=== PATIENT | male | born 1995 | race African-American/Black ===

== ENCOUNTER 2020-11-29 14:31 | Outpatient (AMBR) | payer MEDICAID, SELFPAY ==
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
--- NOTE | 2020-11-11 16:08 | PT.ODAYNRPT ---
PT Outpatient Daily Note Date of Service: 11/11/20 OP Daily Note Visit Reasons: Left clavicle fracture Outpatient Physical Therapy Treatment Date: 11/11/20 Subjective: Pt mention that his shoulder feels okay but still tight Objective: Please see flow chart for list of ther ex performed Assessment: tolerate exercises with minimal pain Plan: Continue with PT Length of Time (minutes) of Treatment: 30 Minutes Office Procedures PT Procedures PT Date of Service: 11/08/20 OP PT Eval Mod Complex 30 minutes: Yes PT Procedures PT Date of Service: 11/11/20 MCL Initial 30 minutes: Yes
--- NOTE | 2020-11-13 16:11 | PT.ODAYNRPT ---
PT Outpatient Daily Note Date of Service: 11/13/20 OP Daily Note Visit Reasons: Left clavicle fracture Outpatient Physical Therapy Treatment Date: 11/13/20 Subjective: Pt's shoulder feels pretty good after last session Objective: Please see flow chart for list of ther ex performed Assessment: tolerate exercises with minimal pain Plan: Continue with PT Length of Time (minutes) of Treatment: 30 Minutes Office Procedures PT Procedures PT Date of Service: 11/08/20 OP PT Eval Mod Complex 30 minutes: Yes PT Procedures PT Date of Service: 11/11/20 MCL Initial 30 minutes: Yes PT Procedures PT Date of Service: 11/13/20 MCL Initial 30 minutes: Yes
--- NOTE | 2020-11-18 16:08 | PT.ODAYNRPT ---
PT Outpatient Daily Note Date of Service: 11/18/20 OP Daily Note Visit Reasons: Left clavicle fracture Outpatient Physical Therapy Treatment Date: 11/18/20 Subjective: Pt feels shoulder is tight. Pt notice knot in the latts. Pt overall shoulder ROM is improving Objective: Please see flow chart for list of ther ex performed Assessment: decrease tension in latts after STM. Noted more shoulder ER after latt was worked on. Pt still require cues to relax to decrease compensation with shoulder exercises Plan: Continue with PT Length of Time (minutes) of Treatment: 45 Minutes Office Procedures PT Procedures PT Date of Service: 11/08/20 OP PT Eval Mod Complex 30 minutes: Yes PT Procedures PT Date of Service: 11/11/20 MCL Initial 30 minutes: Yes PT Procedures PT Date of Service: 11/13/20 MCL Initial 30 minutes: Yes PT Procedures PT Date of Service: 11/18/20 MCL Initial 30 minutes: Yes MCL Additional 15 minutes (Total 45 Minutes): Yes
--- NOTE | 2020-11-20 16:18 | PT.ODAYNRPT ---
PT Outpatient Daily Note Date of Service: 11/20/20 OP Daily Note Visit Reasons: Left clavicle fracture Outpatient Physical Therapy Treatment Date: 11/20/20 Subjective: Pt mention that his latts feel much better after last session. Pt still notice tightness but it has improved. Objective: Please see flow chart for list of ther ex performed Assessment: more shoulder external rotation AROM noted today; latts still exhibit tension and decrease after STM Plan: Continue with PT Length of Time (minutes) of Treatment: 45 Minutes Office Procedures PT Procedures PT Date of Service: 11/08/20 OP PT Eval Mod Complex 30 minutes: Yes PT Procedures PT Date of Service: 11/11/20 MCL Initial 30 minutes: Yes PT Procedures PT Date of Service: 11/13/20 MCL Initial 30 minutes: Yes PT Procedures PT Date of Service: 11/18/20 MCL Initial 30 minutes: Yes MCL Additional 15 minutes (Total 45 Minutes): Yes PT Procedures PT Date of Service: 11/20/20 MCL Initial 30 minutes: Yes MCL Additional 15 minutes (Total 45 Minutes): Yes
--- NOTE | 2020-11-27 16:14 | PT.ODAYNRPT ---
PT Outpatient Daily Note Date of Service: 11/27/20 OP Daily Note Visit Reasons: Left clavicle fracture Outpatient Physical Therapy Treatment Date: 11/27/20 Subjective: Pt mention that his shoulder is better. Pt has been doing latts STM Objective: Please see flow chart for list of ther ex performed Assessment: tolerate exercises with minimal pain Plan: Continue with PT Length of Time (minutes) of Treatment: 45 Minutes Office Procedures PT Procedures PT Date of Service: 11/08/20 OP PT Eval Mod Complex 30 minutes: Yes PT Procedures PT Date of Service: 11/11/20 MCL Initial 30 minutes: Yes PT Procedures PT Date of Service: 11/13/20 MCL Initial 30 minutes: Yes PT Procedures PT Date of Service: 11/18/20 MCL Initial 30 minutes: Yes MCL Additional 15 minutes (Total 45 Minutes): Yes PT Procedures PT Date of Service: 11/20/20 MCL Initial 30 minutes: Yes MCL Additional 15 minutes (Total 45 Minutes): Yes PT Procedures PT Date of Service: 11/27/20 MCL Initial 30 minutes: Yes MCL Additional 15 minutes (Total 45 Minutes): Yes
--- NOTE | 2020-11-29 15:33 | PT.ODAYNRPT ---
PT Outpatient Daily Note Date of Service: 11/29/20 OP Daily Note Visit Reasons: Left clavicle fracture Outpatient Physical Therapy Treatment Date: 11/29/20 Subjective: Pt's shoulder better; saw surgeon and may take out screws and plate in 6 months. Objective: Please see flow chart for list of ther ex performed Assessment: tolerate exercises with minimal pain Plan: Continue with PT Length of Time (minutes) of Treatment: 45 Minutes Office Procedures PT Procedures PT Date of Service: 11/29/20 MCL Initial 30 minutes: Yes MCL Additional 15 minutes (Total 45 Minutes): Yes PT Procedures PT Date of Service: 11/08/20 OP PT Eval Mod Complex 30 minutes: Yes PT Procedures PT Date of Service: 11/11/20 MCL Initial 30 minutes: Yes PT Procedures PT Date of Service: 11/13/20 MCL Initial 30 minutes: Yes PT Procedures PT Date of Service: 11/18/20 MCL Initial 30 minutes: Yes MCL Additional 15 minutes (Total 45 Minutes): Yes PT Procedures PT Date of Service: 11/20/20 MCL Initial 30 minutes: Yes MCL Additional 15 minutes (Total 45 Minutes): Yes PT Procedures PT Date of Service: 11/27/20 MCL Initial 30 minutes: Yes MCL Additional 15 minutes (Total 45 Minutes): Yes
== END 2020-11-29 23:59 | disposition home or self-care (01) ==
PROVIDERS: PCP Family Medicine; Referring Provider Family Medicine; Visit Provider Orthopaedic Surgery
DX: S42.022D Displaced fracture of shaft of left clavicle, subsequent encounter for fracture with routine healing (principal); M25.512 Pain in left shoulder; R53.1 Weakness; V86.56XD Driver of dirt bike or motor/cross bike injured in nontraffic accident, subsequent encounter
CPT/HCPCS: 97162

== ENCOUNTER 2020-12-26 14:57 | Outpatient (AMBR) | payer MEDICAID, SELFPAY ==
--- NOTE | 2020-12-02 16:19 | PT.ODAYNRPT ---
PT Outpatient Daily Note Date of Service: 12/02/20 OP Daily Note Visit Reasons: Left clavicle fracture Outpatient Physical Therapy Treatment Date: 12/02/20 Subjective: Pt's shoulder is better. Pt just concerned about his bone healing correctly Objective: Please see flow chart for list of ther ex performed Assessment: tolerate exercises with minimal pain Plan: Continue with PT Length of Time (minutes) of Treatment: 45 Minutes Office Procedures PT Procedures PT Date of Service: 12/02/20 MCL Initial 30 minutes: Yes MCL Additional 15 minutes (Total 45 Minutes): Yes
--- NOTE | 2020-12-04 16:12 | PT.ODAYNRPT ---
PT Outpatient Daily Note Date of Service: 12/04/20 OP Daily Note Visit Reasons: Left clavicle fracture Outpatient Physical Therapy Treatment Date: 12/04/20 Subjective: Pt's shoulder feels restricted but noted less pain lately. Pt is going to try swimming today Objective: Please see flow chart for list of ther ex performed Assessment: notice post capsule restriction and add joint mob which help. Pt's shoulder external rotation AROM still limited at end range due to muscular and joint restriction. Plan: Continue with PT Length of Time (minutes) of Treatment: 45 Minutes Office Procedures PT Procedures PT Date of Service: 12/02/20 MCL Initial 30 minutes: Yes MCL Additional 15 minutes (Total 45 Minutes): Yes PT Procedures PT Date of Service: 12/04/20 MCL Initial 30 minutes: Yes MCL Additional 15 minutes (Total 45 Minutes): Yes
--- NOTE | 2020-12-09 15:50 | PT.ODAYNRPT ---
PT Outpatient Daily Note Date of Service: 12/09/20 OP Daily Note Visit Reasons: Left clavicle fracture Outpatient Physical Therapy Treatment Date: 12/09/20 Subjective: Pt shoulder feels tight only pain at the surgical site with jarring movement or speed. Pt had difficulty swimming this past weekend due to shoulder pain at the surgical site Objective: Please see flow chart for list of ther ex performed Assessment: tolerate exercises with minimal pain Plan: Continue with PT Length of Time (minutes) of Treatment: 45 Minutes Office Procedures PT Procedures PT Date of Service: 12/02/20 MCL Initial 30 minutes: Yes MCL Additional 15 minutes (Total 45 Minutes): Yes PT Procedures PT Date of Service: 12/04/20 MCL Initial 30 minutes: Yes MCL Additional 15 minutes (Total 45 Minutes): Yes PT Procedures PT Date of Service: 12/09/20 MCL Initial 30 minutes: Yes MCL Additional 15 minutes (Total 45 Minutes): Yes
--- NOTE | 2020-12-11 16:20 | PT.ODAYNRPT ---
PT Outpatient Daily Note Date of Service: 12/11/20 OP Daily Note Visit Reasons: Left clavicle fracture Outpatient Physical Therapy Treatment Date: 12/11/20 Subjective: Pt's shoulder is feeling better. Pt notice less wing in the past week Objective: Please see flow chart for list of ther ex performed Assessment: tolerate exercises with minimal pain; cues to correct T's/Y's in prone to engage middle and lower trape Plan: Continue with PT Length of Time (minutes) of Treatment: 45 Minutes Office Procedures PT Procedures PT Date of Service: 12/02/20 MCL Initial 30 minutes: Yes MCL Additional 15 minutes (Total 45 Minutes): Yes PT Procedures PT Date of Service: 12/04/20 MCL Initial 30 minutes: Yes MCL Additional 15 minutes (Total 45 Minutes): Yes PT Procedures PT Date of Service: 12/09/20 MCL Initial 30 minutes: Yes MCL Additional 15 minutes (Total 45 Minutes): Yes PT Procedures PT Date of Service: 12/11/20 MCL Initial 30 minutes: Yes MCL Additional 15 minutes (Total 45 Minutes): Yes
--- NOTE | 2020-12-16 16:20 | PT.ODAYNRPT ---
PT Outpatient Daily Note Date of Service: 12/16/20 OP Daily Note Visit Reasons: Left clavicle fracture Outpatient Physical Therapy Treatment Date: 12/16/20 Subjective: Pt mention that his shoulder feels good. But still has limitation into ER. Pt been feeling the screws on his clavicle and it feels sensitive Objective: Please see flow chart for list of ther ex performed Assessment: tolerate exercises with minimal pain Plan: Continue with PT Length of Time (minutes) of Treatment: 45 Minutes Office Procedures PT Procedures PT Date of Service: 12/02/20 MCL Initial 30 minutes: Yes MCL Additional 15 minutes (Total 45 Minutes): Yes PT Procedures PT Date of Service: 12/16/20 MCL Initial 30 minutes: Yes MCL Additional 15 minutes (Total 45 Minutes): Yes PT Procedures PT Date of Service: 12/04/20 MCL Initial 30 minutes: Yes MCL Additional 15 minutes (Total 45 Minutes): Yes PT Procedures PT Date of Service: 12/09/20 MCL Initial 30 minutes: Yes MCL Additional 15 minutes (Total 45 Minutes): Yes PT Procedures PT Date of Service: 12/11/20 MCL Initial 30 minutes: Yes MCL Additional 15 minutes (Total 45 Minutes): Yes
--- NOTE | 2020-12-18 16:22 | PT.ODAYNRPT ---
PT Outpatient Daily Note Date of Service: 12/18/20 OP Daily Note Visit Reasons: Left clavicle fracture Outpatient Physical Therapy Treatment Date: 12/18/20 Subjective: Pt's shoulder feels good. Pops intermittently but no pain Objective: Please see flow chart for list of ther ex performed Assessment: tolerate exercises with minimal pain Plan: Continue with PT Length of Time (minutes) of Treatment: 45 Minutes Office Procedures PT Procedures PT Date of Service: 12/02/20 MCL Initial 30 minutes: Yes MCL Additional 15 minutes (Total 45 Minutes): Yes PT Procedures PT Date of Service: 12/16/20 MCL Initial 30 minutes: Yes MCL Additional 15 minutes (Total 45 Minutes): Yes PT Procedures PT Date of Service: 12/04/20 MCL Initial 30 minutes: Yes MCL Additional 15 minutes (Total 45 Minutes): Yes PT Procedures PT Date of Service: 12/09/20 MCL Initial 30 minutes: Yes MCL Additional 15 minutes (Total 45 Minutes): Yes PT Procedures PT Date of Service: 12/11/20 MCL Initial 30 minutes: Yes MCL Additional 15 minutes (Total 45 Minutes): Yes PT Procedures PT Date of Service: 12/18/20 MCL Initial 30 minutes: Yes MCL Additional 15 minutes (Total 45 Minutes): Yes
--- NOTE | 2020-12-24 16:15 | PT.ODAYNRPT ---
PT Outpatient Daily Note Date of Service: 12/24/20 OP Daily Note Visit Reasons: Left clavicle fracture Outpatient Physical Therapy Treatment Date: 12/24/20 Subjective: Pt notice less winging. Pt has attempt swimming lately Objective: Please see flow chart for list of ther ex performed Assessment: tolerate exercises; given more HEP to perform at home. Demonstrate exercises safely Plan: Continue with PT Length of Time (minutes) of Treatment: 45 Minutes Office Procedures PT Procedures PT Date of Service: 12/02/20 MCL Initial 30 minutes: Yes MCL Additional 15 minutes (Total 45 Minutes): Yes PT Procedures PT Date of Service: 12/16/20 MCL Initial 30 minutes: Yes MCL Additional 15 minutes (Total 45 Minutes): Yes PT Procedures PT Date of Service: 12/24/20 MCL Initial 30 minutes: Yes MCL Additional 15 minutes (Total 45 Minutes): Yes PT Procedures PT Date of Service: 12/04/20 MCL Initial 30 minutes: Yes MCL Additional 15 minutes (Total 45 Minutes): Yes PT Procedures PT Date of Service: 12/09/20 MCL Initial 30 minutes: Yes MCL Additional 15 minutes (Total 45 Minutes): Yes PT Procedures PT Date of Service: 12/11/20 MCL Initial 30 minutes: Yes MCL Additional 15 minutes (Total 45 Minutes): Yes PT Procedures PT Date of Service: 12/18/20 MCL Initial 30 minutes: Yes MCL Additional 15 minutes (Total 45 Minutes): Yes
--- NOTE | 2020-12-26 16:29 | PT.ODAYNRPT ---
PT Outpatient Daily Note Date of Service: 12/26/20 OP Daily Note Visit Reasons: Left clavicle fracture Outpatient Physical Therapy Treatment Date: 12/26/20 Subjective: Pt's shoulder feels good. Objective: Please see flow chart for list of ther ex performed Assessment: tolerate exercises with minimal pain Plan: Continue with PT Length of Time (minutes) of Treatment: 45 Minutes Office Procedures PT Procedures PT Date of Service: 12/02/20 MCL Initial 30 minutes: Yes MCL Additional 15 minutes (Total 45 Minutes): Yes PT Procedures PT Date of Service: 12/16/20 MCL Initial 30 minutes: Yes MCL Additional 15 minutes (Total 45 Minutes): Yes PT Procedures PT Date of Service: 12/24/20 MCL Initial 30 minutes: Yes MCL Additional 15 minutes (Total 45 Minutes): Yes PT Procedures PT Date of Service: 12/04/20 MCL Initial 30 minutes: Yes MCL Additional 15 minutes (Total 45 Minutes): Yes PT Procedures PT Date of Service: 12/09/20 MCL Initial 30 minutes: Yes MCL Additional 15 minutes (Total 45 Minutes): Yes PT Procedures PT Date of Service: 12/11/20 MCL Initial 30 minutes: Yes MCL Additional 15 minutes (Total 45 Minutes): Yes PT Procedures PT Date of Service: 12/18/20 MCL Initial 30 minutes: Yes MCL Additional 15 minutes (Total 45 Minutes): Yes PT Procedures PT Date of Service: 12/26/20 MCL Initial 30 minutes: Yes MCL Additional 15 minutes (Total 45 Minutes): Yes
== END 2020-12-30 23:59 | disposition home or self-care (01) ==
PROVIDERS: PCP Orthopaedic Surgery; Referring Provider Orthopaedic Surgery; Visit Provider Orthopaedic Surgery
DX: S42.022D Displaced fracture of shaft of left clavicle, subsequent encounter for fracture with routine healing (principal); M25.511 Pain in right shoulder; R53.1 Weakness; V19.3XXD Pedal cyclist (driver) (passenger) injured in unspecified nontraffic accident, subsequent encounter